=== PATIENT | female | born 1955 ===

== ENCOUNTER 2024-11-10 07:30 | Outpatient (CLI) | payer MEDICARE, SELFPAY ==
[2024-11-10 09:24] LABS: Abs Immature Grans 0.05 10^3/uL (0.0-0.06); HCT 39.9 % (36.0-46.0); HGB 12.4 g/dL (11.2-15.7); Immature Grans % 0.7 %; MCH 26.3 pg (27.0-33.0); MCHC 31.1 % (32.0-36.0); MCV 85 fL (80-95); MPV 10.2 fL (8.0-11.0); Platelet Count 344 10^3/uL (130-400); RBC 4.72 10^6/uL (3.93-5.22); RDW 16.4 % (11.7-14.6); RDW-SD 47.3 fL; WBC 6.69 10^3/uL (4.4-10.8)
[2024-11-10 09:56] LABS: ALT 23 U/L (14-59); AST 15 U/L (15-37); Albumin 3.5 g/dL (3.4-5.0); Alkaline Phosphatase 103 U/L (46-116); Anion Gap 8.6 mmol/L (3-11); BUN 28 mg/dL (7-18); Bilirubin, Total 0.6 mg/dL (0.2-1.0); CO2 28.4 mmol/L (21.0-32.0); Calcium 9.6 mg/dL (8.5-10.1); Chloride 101 mmol/L (98-107); Estimated GFR 60.23 (mL/min/1.73m2); Glucose 127 mg/dL (74-106); Magnesium 2.6 mg/dL (1.8-2.4); Potassium 4.0 mmol/L (3.5-5.1); Sodium 138 mmol/L (136-145); Total Protein 7.1 g/dL (6.4-8.2)
== END 2024-11-10 07:31 | disposition home or self-care (01) ==
LOC: LBO 07:30
PROVIDERS: PCP Family Medicine; Visit Provider Internal Medicine Medical Oncology
DX: C34.11 Malignant neoplasm of upper lobe, right bronchus or lung (principal)
CPT/HCPCS: 36415; 80053; 83735; 85025

== ENCOUNTER 2024-11-17 04:25 | Outpatient (CLI) | payer MEDICARE, SELFPAY ==
[2024-11-17 09:02] LABS: Abs Immature Grans 0.03 10^3/uL (0.0-0.06); HCT 38.3 % (36.0-46.0); HGB 12.2 g/dL (11.2-15.7); Immature Grans % 0.7 %; MCH 26.9 pg (27.0-33.0); MCHC 31.9 % (32.0-36.0); MCV 85 fL (80-95); MPV 10.5 fL (8.0-11.0); Platelet Count 287 10^3/uL (130-400); RBC 4.53 10^6/uL (3.93-5.22); RDW 16.7 % (11.7-14.6); RDW-SD 48.2 fL; WBC 4.37 10^3/uL (4.4-10.8)
[2024-11-17 09:25] LABS: ALT 21 U/L (14-59); AST 15 U/L (15-37); Albumin 3.4 g/dL (3.4-5.0); Alkaline Phosphatase 95 U/L (46-116); Anion Gap 9.3 mmol/L (3-11); BUN 16 mg/dL (7-18); Bilirubin, Total 0.4 mg/dL (0.2-1.0); CO2 26.7 mmol/L (21.0-32.0); Calcium 9.6 mg/dL (8.5-10.1); Chloride 102 mmol/L (98-107); Estimated GFR 68.35 (mL/min/1.73m2); Glucose 171 mg/dL (74-106); Magnesium 2.2 mg/dL (1.8-2.4); Potassium 3.3 mmol/L (3.5-5.1); Sodium 138 mmol/L (136-145); Total Protein 6.8 g/dL (6.4-8.2)
== END 2024-11-17 04:26 | disposition home or self-care (01) ==
LOC: LBO 04:25
PROVIDERS: PCP Family Medicine; Visit Provider Internal Medicine Medical Oncology
DX: C34.11 Malignant neoplasm of upper lobe, right bronchus or lung (principal)
CPT/HCPCS: 36415; 80053; 83735; 85025

== ENCOUNTER 2024-11-24 03:26 | Outpatient (CLI) | payer MEDICARE, SELFPAY ==
[2024-11-24 09:28] LABS: Abs Immature Grans 0.02 10^3/uL (0.0-0.06); HCT 37.8 % (36.0-46.0); HGB 11.8 g/dL (11.2-15.7); Immature Grans % 0.4 %; MCH 26.3 pg (27.0-33.0); MCHC 31.2 % (32.0-36.0); MCV 84 fL (80-95); MPV 10.0 fL (8.0-11.0); Platelet Count 133 10^3/uL (130-400); RBC 4.48 10^6/uL (3.93-5.22); RDW 16.7 % (11.7-14.6); RDW-SD 51.5 fL; WBC 5.62 10^3/uL (4.4-10.8)
[2024-11-24 10:05] LABS: ALT 22 U/L (14-59); AST 16 U/L (15-37); Albumin 3.3 g/dL (3.4-5.0); Alkaline Phosphatase 101 U/L (46-116); Anion Gap 10.5 mmol/L (3-11); BUN 11 mg/dL (7-18); Bilirubin, Total 0.5 mg/dL (0.2-1.0); CO2 26.5 mmol/L (21.0-32.0); Calcium 8.8 mg/dL (8.5-10.1); Chloride 103 mmol/L (98-107); Estimated GFR 78.72 (mL/min/1.73m2); Glucose 118 mg/dL (74-106); Magnesium 2.0 mg/dL (1.8-2.4); Potassium 3.7 mmol/L (3.5-5.1); Sodium 140 mmol/L (136-145); Total Protein 6.4 g/dL (6.4-8.2)
== END 2024-11-24 03:27 | disposition home or self-care (01) ==
LOC: LBO 03:26
PROVIDERS: PCP Family Medicine; Visit Provider Internal Medicine Medical Oncology
DX: C34.11 Malignant neoplasm of upper lobe, right bronchus or lung (principal)
CPT/HCPCS: 36415; 80053; 83735; 85025

== ENCOUNTER 2024-12-01 03:34 | Outpatient (CLI) | payer MEDICARE, SELFPAY ==
[2024-12-01 09:49] LABS: Abs Immature Grans 0.04 10^3/uL (0.0-0.06); HCT 35.8 % (36.0-46.0); HGB 11.5 g/dL (11.2-15.7); Immature Grans % 0.7 %; MCH 27.3 pg (27.0-33.0); MCHC 32.1 % (32.0-36.0); MCV 85 fL (80-95); MPV 10.4 fL (8.0-11.0); Platelet Count 119 10^3/uL (130-400); RBC 4.21 10^6/uL (3.93-5.22); RDW 16.7 % (11.7-14.6); RDW-SD 51.0 fL; WBC 5.43 10^3/uL (4.4-10.8)
[2024-12-01 10:06] LABS: ALT 25 U/L (14-59); AST 15 U/L (15-37); Albumin 3.1 g/dL (3.4-5.0); Alkaline Phosphatase 99 U/L (46-116); Anion Gap 9.9 mmol/L (3-11); BUN 9 mg/dL (7-18); Bilirubin, Total 0.5 mg/dL (0.2-1.0); CO2 26.1 mmol/L (21.0-32.0); Calcium 8.8 mg/dL (8.5-10.1); Chloride 103 mmol/L (98-107); Estimated GFR 78.72 (mL/min/1.73m2); Glucose 149 mg/dL (74-106); Magnesium 1.9 mg/dL (1.8-2.4); Potassium 4.1 mmol/L (3.5-5.1); Sodium 139 mmol/L (136-145); Total Protein 6.2 g/dL (6.4-8.2)
== END 2024-12-01 03:35 | disposition home or self-care (01) ==
LOC: LBO 03:34
PROVIDERS: PCP Family Medicine; Visit Provider Internal Medicine Medical Oncology
DX: C34.11 Malignant neoplasm of upper lobe, right bronchus or lung (principal)
CPT/HCPCS: 36415; 80053; 83735; 85025